=== PATIENT | female | born 1960 | race Caucasian/White ===

== ENCOUNTER 2019-08-25 19:32 | Emergency (ER) | payer BC ==
[2019-08-25 19:43] VITALS: BP 155/89; PULSE 69; TEMP 98.2; BMI 25.0
[2019-08-25] MEDS ORDERED: KETOROLAC TROMETHAMINE 60 MG/2 ML VIAL IM ONE (19:53)
[2019-08-25] MEDS ORDERED: KETOROLAC TROMETHAMINE 60 MG/2 ML VIAL ONE (19:58)
[2019-08-25] MEDS ORDERED: ONDANSETRON *ODT* 4 MG TABLET SL ONE (21:02)
--- NOTE | 2019-08-25 21:06 | PDOC ---
Documentation entered by Jorge L Hutchins SCRIBE, acting as scribe for Neeta Bridges MD. Neeta Bridges MD: This documentation has been prepared by the Cuong dick Aiswarya, SCRIBE, under my direction and personally reviewed by me in its entirety. I confirm that the documentation accurately reflects all work, treatment, procedures, and medical decision making performed by me. History of Present Illness - General Chief Complaint: Pain, Acute Stated Complaint: R KNEE PAIN History Source: Patient Exam Limitations: No Limitations - History of Present Illness Initial Comments: 08/25/19 20:00 The patient is a 59 year old female, with no significant PMH, who presents to the emergency department with right leg pain s/p a fall that occurred today. The patient states she was at the gym and fell off an exercise machine, twisting her right leg. She states she heard a pop sound and currently endorses throbbing pain to the right knee that is exacerbated with flexion and extension. The patient denies any numbness or tingling. Denies chest pain, shortness of breath, headache and dizziness.Denies fever, chills, nausea, vomit , diarrhea and constipation. PAST MEDICAL HISTORY: no significant history PAST SURGICAL HISTORY: no significant history FAMILY HISTORY: no pertinent history SOCIAL HISTORY: Pt lives with family and is employed. MEDICATIONS: reviewed ALLERGIES: As per nursing notes Adult ROS General: No fevers or chills, no weakness, no weight loss HEENT: No change in vision. No sore throat,. No ear pain CardioVascular: No chest pain or shortness of breath Respiratory:No cough, or wheezing. Musculoskeletal: +right knee pain Neurologic: No headache, vertigo, dizziness or loss of consciousness Psychiatric: nor depression Skin: No rashes or easy bruising Endocrine: no increased thirst or abnormal weight change Allergic: no skin or latex allergy All other systems reviewed and normal Basic PE GENERAL: The patient is awake, alert, and fully oriented, in no acute distress. HEAD: Normal with no signs of trauma. EYES: Pupils equal, round and reactive to light, extraocular movements intact, sclera anicteric, conjunctiva clear. EXTREMITIES:+No swelling or ecchymosis of the right knee. Diffuse tenderness on palpation with limited ROM secondary to the pain. Neurovascular intact. No bony tenderness of the right ankle, foot, calf, lower leg or femur. NEUROLOGICAL: Normal speech. PSYCH: Normal mood, normal affect. SKIN: Warm, Dry, normal turgor, no rashes or lesions noted. 08/25/19 21:03 Assessment and plan: This is a 59-year-old female who was doing a step class when she felt a pop in her knee. Patient comes in complaining of pain and unable to ambulate. X-ray was done which shows no acute fracture or dislocation however there is a effusion in the joint space. Patient given immobilizer a shot of Toradol some Zofran and Percocet as patient said Percocet does make her nauseous. Patient given Dr. Boles to follow-up with and discharged home with a knee immobilizer and crutches 08/25/19 22:02 Reevaluation post Zofran and Percocet. Patient feels better pain improved patient not nauseous so we will send prescriptions for Zofran and Percocet to her pharmacy. Past History - Past Medical History Allergies/Adverse Reactions: Allergies Allergy/AdvReac Type Severity Reaction Status Date / Time iodine Allergy Unverified 08/16/14 16:32 levofloxacin [From Levaquin] Allergy Unverified 08/16/14 16:32 Home Medications: Ambulatory Orders Ondansetron [Zofran *Odt*] 4 mg SL TID #12 od.tablet 08/25/19 Oxycodone HCl/Acetaminophen [Percocet 5-325 mg Tablet] 1 - 2 tab PO Q4H #20 tablet MDD 8 08/25/19 COPD: No - Psycho Social/Smoking Cessation Hx Smoking History: Unknown if ever smoked Have you smoked in the past 12 months: No Number of Cigarettes Smoked Daily: 0 Information on smoking cessation initiated: No Hx Alcohol Use: No Drug/Substance Use Hx: No *Physical Exam - Vital Signs Last Vital Signs Temp Pulse Resp BP Pulse Ox 98.2 F 69 14 155/89 100 08/25/19 19:35 08/25/19 19:35 08/25/19 19:35 08/25/19 19:35 08/25/19 19:35 ED Treatment Course - RADIOLOGY Radiology Studies Ordered: Category Date Time Status KNEE 3 POS-RIGHT [RAD] Stat Radiology 08/25/19 19:50 Taken - Medications Given in the ED: ED Medications Discontinued Medications Generic Name Dose Route Start Last Admin Trade Name Joel PRN Reason Stop Dose Admin Ketorolac Tromethamine 60 mg 08/25/19 19:53 08/25/19 19:55 Toradol Injection - IM 08/25/19 19:54 60 mg ONCE ONE Administration Discharge - Discharge Information Problems reviewed: Yes Clinical Impression/Diagnosis: Internal derangement of right knee Condition: Good Disposition: HOME - Admission No - Additional Discharge Information Prescriptions: Ondansetron [Zofran *Odt*] 4 mg SL TID #12 od.tablet Oxycodone HCl/Acetaminophen [Percocet 5-325 mg Tablet] 1 - 2 tab PO Q4H #20 tablet MDD 8 - Follow up/Referral Referrals: Brandon Vargas MD [Primary Care Provider] - Solo Boles MD [Staff Physician] - - Patient Discharge Instructions Patient Printed Discharge Instructions: DI for Prescription Opioid Use Additional Instructions: For the pain take Percocet 1 or 2 tablets every 4-6 hours as needed. In addition to the Percocet you can take naproxen 2 tablets twice a day with food do not take on an empty stomach. If the Percocet makes you nauseous take Zofran 1 tablet 3 times a day. Wear the knee immobilizer as needed for comfort and use your crutches. Call Dr. Tenorio office in the morning for follow-up. Return to the emergency department immediately with ANY new, persistent or worsening symptoms. Continue any medications as previously prescribed by your physician. You should follow up with your primary doctor as soon as possible regarding today's emergency department visit. . Please make sure your doctor reviews the results of your emergency evaluation. Thank you for coming to the Emergency Department today for your care. It was a pleasure to see you today. Please note that your evaluation is INCOMPLETE until you follow-up with your doctor. - Post Discharge Activity
[2019-08-25] MEDS ORDERED: ONDANSETRON *ODT* 4 MG TABLET ONE (21:12)
== END 2019-08-25 22:04 | disposition home or self-care (01) ==
LOC: FER 19:32
PROC: 3E0233Z Introduction of Anti-inflammatory into Muscle, Percutaneous Approach (ICD-10-PCS; principal; 2019-08-25)
DX: M23.91 Unspecified internal derangement of right knee (principal); Z88.8 Allergy status to other drugs, medicaments and biological substances; Z91.09 Other allergy status, other than to drugs and biological substances
CPT/HCPCS: 73562-TC-RT-FY; 99283-25; Q0162

== ENCOUNTER 2022-10-07 18:55 | Emergency (ER) | payer BC ==
[2022-10-07 19:05] VITALS: BP 168/82; PULSE 62; RESP 20; TEMP 97; BMI 24.6
[2022-10-07] MEDS ORDERED: ONDANSETRON 4 MG/2 ML VIAL IVPUSH ONE (20:34)
[2022-10-07] MEDS ORDERED: FAMOTIDINE 20 MG/50 ML IVPB 20 MG/50 ML MG IVPB ONE ×2 (20:34→22:03)
[2022-10-07] MEDS ORDERED: SODIUM CHLORIDE 0.9% 500 ML INFUS.BAG IV ONE (20:34)
[2022-10-07 21:09] LABS: EOS % 1.6 % (0-4.5); HEMATOCRIT 41.2 % (32.4-45.2); HEMOGLOBIN 13.9 GM/dL (10.7-15.3); LYMPH % 15.6 % (8-40); MCH 30.2 pg (25.7-33.7); MCHC 33.8 g/dl (32.0-36.0); MEAN CELL VOLUME 89.1 fl (80-96); MEAN PLT VOLUME 7.7 fl (7.5-11.1); MONO % 4.6 % (3.8-10.2); NEUT % 77.2 % (42.8-82.8); PLATELET COUNT 246 10^3/uL (134-434); RBC 4.62 M/mm3 (3.60-5.2); RDW 12.7 % (11.6-15.6); WHITE BLOOD COUNT 6.4 K/mm3 (4.0-10.0)
[2022-10-07 21:30] LABS: CALCIUM 9.2 mg/dL (8.5-10.1)
[2022-10-07 21:31] LABS: ALBUMIN 3.6 g/dl (3.4-5.0); BLOOD UREA NITROGEN 13.3 mg/dL (7-18); MAGNESIUM 1.9 mg/dL (1.8-2.4)
[2022-10-07 21:33] LABS: CREATININE 0.8 mg/dL (0.55-1.3)
[2022-10-07 21:35] LABS: BILIRUBIN,TOTAL 0.6 mg/dL (0.2-1); TOT PROT 6.6 g/dl (6.4-8.2)
[2022-10-07] MEDS ORDERED: ONDANSETRON 4 MG/2 ML VIAL ONE (22:03)
[2022-10-08 00:38] LABS: EPI CELLS 5 /uL (0-25.1); HYALINE CASTS 0 /uL (0-3.1); PH,URINE 6.5 (5.0-8.0); URINE APPEARANCE CLEAR; URINE BACTERIA 11 /uL (0-1359); URINE BILIRUBIN NEGATIVE (NEGATIVE); URINE COLOR YELLOW; URINE GLUCOSE (UA) NEGATIVE (NEGATIVE); URINE KETONE 2+ (NEGATIVE); URINE LEUK ESTERASE TRACE (NEGATIVE); URINE NITRITE NEGATIVE (NEGATIVE); URINE PROTEIN NEGATIVE (NEGATIVE); URINE RBC 28 /uL (0-23.9); URINE UROBILINOGEN 0.2 mg/dL (0.2-1.0); URINE WBC 31 /uL (0-25.8)
[2022-10-08] MEDS ORDERED: SODIUM CHLORIDE 1,000 ML IV STA (00:58)
[2022-10-08] MEDS ORDERED: ONDANSETRON *ODT* 4 MG TABLET SL ONE (02:27)
[2022-10-08] MEDS ORDERED: ONDANSETRON *ODT* 4 MG TABLET ONE (02:37)
== END 2022-10-08 02:34 | disposition home or self-care (01) ==
LOC: JER 18:55
PROC: 3E033GC Introduction of Other Therapeutic Substance into Peripheral Vein, Percutaneous Approach (ICD-10-PCS; principal; 2022-10-07)
DX: R10.84 Generalized abdominal pain (principal); R11.10 Vomiting, unspecified
CPT/HCPCS: 0241U-QW; 36415; 74176-TC; 80053; 81003; 83690; 83735; 84484; 85025; 87086; 93005; 93010; 99285-25; Q0162

== ENCOUNTER 2024-12-10 18:14 | Emergency (ER) | payer BC ==
[2024-12-10 18:36] VITALS: BP 140/99; PULSE 73; RESP 16; TEMP 98.3; BMI 22.3
[2024-12-10] MEDS ORDERED: ACETAMINOPHEN 500 MG TABLET (FP) ONE (19:09)
[2024-12-10] MEDS ORDERED: CycloBENZAprine HCL 5 MG TABLET ONE (19:10)
[2024-12-10] MEDS ORDERED: KETOROLAC TROMETHAMINE 30 MG/1 ML VIAL ONE (19:10)
[2024-12-10] MEDS: KETOROLAC TROMETHAMINE 30 MG/1 ML VIAL IM ONE (19:15)
[2024-12-10] MEDS: ACETAMINOPHEN 500 MG TABLET (FP) PO ONE (19:20)
[2024-12-10] MEDS: CycloBENZAprine HCL 10 MG TABLET (FP) PO ONE (19:21)
== END 2024-12-10 22:01 | disposition home or self-care (01) ==
LOC: FER 18:14
PROC: 3E0233Z Introduction of Anti-inflammatory into Muscle, Percutaneous Approach (ICD-10-PCS; principal; 2024-12-10)
DX: M25.552 Pain in left hip (principal); M25.562 Pain in left knee; M25.462 Effusion, left knee; W01.0XXA Fall on same level from slipping, tripping and stumbling without subsequent striking against object, initial encounter
CPT/HCPCS: 72192-TC; 73700-TC-RT; 93971-TC; 99285-25